=== PATIENT | female | born 1960 | race Caucasian/White ===

== ENCOUNTER 2017-09-11 10:13 | Outpatient (CLI) | payer OTHER ==
--- NOTE | 2017-09-14 11:41 | RAD ---
THREE VIEWS CERVCIAL SPINE: Date: 09-11-17 History: Neck pain Comparison: None available. FINDINGS: C1 to the cervicothoracic junction is seen on the lateral view. The vertebral body heights are within normal limits. There is narrowing of the C3-4, C5-6 and C6-7 intervertebral disc spaces. Osteophyte formation is seen posteriorly at the C5-6 and C6-7 levels. Prevertebral soft tissues are within bryanna l limits. IMPRESSION: Degenerative changes in the cervical spine. No fracture or subluxation is seen. POS: MICHAEL
== END 2017-09-11 10:14 | disposition home or self-care (01) ==
LOC: RAD-FRANK 10:13
PROVIDERS: ATTEND Nurse Practitioner Family
DX: M54.2 Cervicalgia (principal); M47.892 Other spondylosis, cervical region
CPT/HCPCS: 72040

== ENCOUNTER 2020-07-19 12:56 | Observation (INO) | payer BC ==
[~2020-07-19 12:56] MED LIST: Lidocaine 1% PF 5 ML VIAL ONE; Ondansetron PF 4 MG/2 ML Vial ONE; PROPOFOL 200 MG/20 ML VIAL ONE; Rocuronium Bromide 10 MG/ML (10ML VIAL) ONE; ePHEDrine 50 MG/ML VIAL ONE
[2020-07-19] MEDS ORDERED: Ketamine 50 MG/ML (10ML VIAL) ONE (13:07)
[2020-07-19] MEDS ORDERED: Ondansetron PF 4 MG/2 ML Vial ONE (13:07)
--- NOTE | 2020-07-19 13:39 | RAD ---
EXAM: 2 views of the left tibia/fibula HISTORY: Leg pain after falling off a ladder COMPARISON: None FINDINGS: There is a comminuted fracture of the distal fibula diaphysis. There is a comminuted fractu re of the distal tibial metaphysis. Surrounding soft tissue swelling is seen. There is normal alignment of the ankle mortise. IMPRESSION: Distal left tibia and fibula fracture
--- NOTE | 2020-07-19 13:41 | RAD ---
Foot 2 views: 07/19/2020 COMPARISON: None HISTORY: Fell off of a ladder FINDINGS: Prominent distal left tibial and fibular fractures are present, better assessed on the left ankle series. Please refer to left ankle imaging for full assessment. No fracture seen otherwise on this exam. IMPRESSION: Fractures of the distal left tibia and fibula, not well visualized on this exam.
--- NOTE | 2020-07-19 13:41 | RAD ---
EXAM: 2 views of the left ankle HISTORY: Ankle pain COMPARISON: None FINDINGS: 2 views of the left ankle shows a fracture the distal fibular diaphysis and a fracture of t he distal tibial metaphysis. Both of the fractures are comminuted. There is normal alignment of the ankle mortise. Diffuse surrounding soft tissue swelling is seen. IMPRESSION: Distal tibial and fibular fractures
[2020-07-19] MEDS ORDERED: Lorazepam 2 MG/ML VIAL ONE (13:54)
--- NOTE | 2020-07-19 14:14 | RAD ---
EXAM: Single view of the chest HISTORY: Ankle fracture. Preoperative radiograph COMPARISON: None FINDINGS: Single view of the chest shows a normal sized cardiomediastinal silhouette. There is no walt dence of consolidation, mass, or pleural effusion. Hardware is seen in the cervical spine. IMPRESSION: No evidence of acute cardiopulmonary disease
--- NOTE | 2020-07-19 14:15 | RAD ---
Exam: XR Ankle Lt 2 View HISTORY: Deformity left ankle. Post reduction. COMPARISON: 07/19/2020 at 1324 hours FINDINGS: Previously noted comminuted fractures involving the distal left tibial metaphysis as well as distal f ibular diaphysis are again seen. Overall alignment of fracture fragments is not significantly changed. Distal fracture fragment of the tibia is displaced laterally by 1.4 cm. There is mild apex m edial angulation of fracture fragments. Subcutaneous soft tissue swelling is seen about the ankle. Splint material now overlies the ankle. There is no dislocation seen. IMPRESSION: Comminuted fractures with separation and displacement of fracture fragments involving the distal left tibia and fibula.
[2020-07-19 14:20] LABS: #Basophils 0.1 thou/uL (0.0-0.2); #Eosinphils 0.1 thou/uL (0.0-0.7); #Lymphocytes 2.5 thou/uL (1.20-3.40); #Monocytes 1.2 thou/uL (0.11-0.59); #Neutrophils 10.4 thou/uL (1.40-6.50); %Basophils 0.5 % (0.0-1.0); %Eosinophils 0.8 % (0.0-10.0); %Lymphocytes 17.4 % (21.0-51.0); %Monocytes 8.3 % (0.0-10.0); %Neutrophils 73.1 % (42.0-75.0); Hemoglobin 12.3 g/dL (12.0-16.0); Mean Corpuscular HGB CONC 32.2 g/dL (32.0-36.0); Mean Corpuscular Hemoglobin 31.7 pg (27.0-31.0); Mean Corpuscular Volume 98.3 fL (78.0-98.0); Mean Platelet Volume 7.5 fL (7.4-10.4); Platelet Count 337 thou/uL (130-400); RBC Distribution Width 11.8 % (11.5-14.5); Red Blood Cell (RBC) Count 3.87 mill/uL (4.20-5.40); White Blood Cell (WBC) Count 14.2 thou/uL (4.8-10.8)
[2020-07-19 14:24] LABS: INR-International Normal Ratio 1.1; PTT 25.5 sec (22.9-36.1); Prothrombin Time 14.3 sec (12.0-14.7)
[2020-07-19 14:44] LABS: ALT (SGPT) 22 U/L (8-55); AST (SGOT) 17 U/L (5-34); Albumin 3.8 g/dL (3.5-5.0); Alkaline Phosphatase 60 U/L (40-110); Anion Gap 13 mmol/L (10-20); BUN (Urea Nitrogen) 12 mg/dL (9.8-20.1); Bilirubin, Total 0.4 mg/dL (0.2-1.2); Calc. Creatinine Clearance 0 mL/min (70-130); Calcium 8.2 mg/dL (7.8-10.44); Carbon Dioxide 22 mmol/L (22-29); Chloride 110 mmol/L (98-107); Globulin 2.7 g/dL (2.4-3.5); Glucose 101 mg/dL (70-105); Potassium 3.5 mmol/L (3.5-5.1); Protein, Total 6.5 g/dL (6.0-8.3); Sodium 141 mmol/L (136-145)
[2020-07-19 14:55] LABS: Magnesium 1.9 mg/dL (1.6-2.6)
[2020-07-19] MEDS ORDERED: Fentanyl 100 MCG/2 ML VIAL ONE ×4 (15:04→20:07)
[2020-07-19] MEDS ORDERED: Ketorolac Tromethamine 30 MG/ML VIAL ONE (15:14)
[2020-07-19] MEDS ORDERED: Boostrix 0.5 ML (Tdap) VIAL ONE (15:14)
[2020-07-19] MEDS ORDERED: Potassium Phosphate 30 MMOL, Magnesium Sulfate 2 GM in Sodium Chloride 0.9% 250 ML 250 ML IVPB SCH (15:18)
[2020-07-19] MEDS ORDERED: Dextrose 5% in Water 1,000 ML IV PRN (15:18)
[2020-07-19] MEDS ORDERED: Ondansetron PF 4 MG/2 ML Vial IVP PRN (15:18)
[2020-07-19] MEDS ORDERED: Dextrose 50% Abboject 50 ML SYRINGE SLOW IVP PRN (15:18)
[2020-07-19] MEDS ORDERED: Ondansetron ODT 4 MG TAB PO PRN (15:18)
[2020-07-19] MEDS ORDERED: Magnesium Sulfate 2 GM in Sodium Chloride 0.9% 100 ML IVPB SCH (15:18)
[2020-07-19] MEDS ORDERED: Promethazine HCl 25 MG/ML VIAL IM PRN (15:18)
[2020-07-19] MEDS ORDERED: hydrALAZINE 20 MG/ML VIAL SLOW IVP PRN (15:18)
[2020-07-19] MEDS ORDERED: traMADol HCl 50 MG TAB PO PRN (15:21)
[2020-07-19] MEDS ORDERED: Cyclobenzaprine 10 MG TAB PO PRN (15:21)
--- NOTE | 2020-07-19 15:22 | CON ---
DATE OF CONSULTATION: This is Ashok Koehler PA-C dictating a report for Roberto Arteaga MD. HISTORY OF PRESENT ILLNESS: We were asked by Trauma in the ER to see patient. The patient was up on a ladder cleaning trailer, water was all over the ground, ladder slipped as did she landing on her left lower extremity. Currently, she is a little somnolent due to pain medications. The family is at the bedside. Overall, she is answering questions well. Asked patient if she hurts anywhere else or had any other injuries, she denies this. The patient had definite deformity of the left ankle even after reduction in the ER. The patient's leg is still fairly painful, miserable. She denies any numbness or tingling. No sensory changes. PAST MEDICAL HISTORY: Positive for thyroid. She has some chronic pain from cervical injury with a multilevel 360 anterior cervical and posterior cervical diskectomy and fusion. Also has some neuropathies, muscle spasms. MEDICATIONS: 1. Thyroid. 2. Tramadol. 3. Flexeril. 4. Gabapentin. 5. Adderall. ALLERGIES: VERY SENSITIVE AND ALLERGIC TO MORPHINE. SURGERIES: She has had a 360 cervical fusion and diskectomy by Dr. Dominguez. She had an appendix and right foot surgery. SOCIAL HISTORY: . Family is at bedside. 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 She denies any alcohol, nicotine, or drug products whatsoever. FAMILY HISTORY: For this particular admission is noncontributory. REVIEW OF SYSTEMS: Denies any chest pain or shortness of breath. No chronic bowel or bladder issues. Health is overall pretty good. Her only complaint is significant left lower extremity pain. Rest of review of systems is negative. PHYSICAL EXAMINATION: GENERAL: Well-nourished, well-developed female, alert, pleasant, and in moderate distress, resting on a gurney in room 2 in the emergency room. Again, family is at bedside. HEENT: Scalp atraumatic. Face symmetric. Tongue midline. NECK: Supple. Trachea midline. EXTREMITIES: Upper extremities; equal, size, shape, symmetry. Normal bulk and tone. Movement, sensations, strengths are grossly intact. Respirations 16. No acute distress. Pelvis, no pain with rocking. Right lower extremity, normal exam. Left lower extremity, she is currently splinted in posterior stirrup splint. She is able to wiggle her toes and has good capillary refill and sensations. IMAGING STUDIES: X-ray shows a fairly significant distal tib-fib fracture. ER states that has a few puncture holes through it. LABORATORY DATA: WBC 14.2, RBCs 3.87. Coags negative. Chemistry and COVID pending. ASSESSMENT: Open left distal tib-fib fracture. PLAN: I spoke with Dr. Arteaga, would like to do this today. Trauma is evaluating the patient to deal with their medical issues. I spoke with the family and the patient, went over the surgery via distal tibial plating. We will need to watch out those two small puncture areas and I have explained this to the family. Their questions and concerns have been addressed. The patient and family understand the risks and benefits of surgery and they are amenable to go forth with surgery. We will get her added on to the operating room schedule. She has currently been n.p.o. since yesterday, get her consented, get her on some IV antibiotics, at ER was given her two doses and if family has any other questions or concerns, where they find that she is on further medications and what we are able to acquire, we will go over them at that time. Job ID: [id number]
--- NOTE | 2020-07-19 16:35 | HP ---
CONSULTS: Orthopedic Surgery, Dr. Arteaga. PRIMARY CARE PHYSICIAN: Dr. Dwoell. CHIEF COMPLAINT: Fall from step ladder, left ankle pain. 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 The patient states that she landed wrong on her left ankle. Reported immediate pain. The patient denies hitting her head or losing consciousness. The patient denies any other injuries. The patient had obvious deformity and pain to her left ankle. The patient was evaluated in the emergency room and found to have a dislocation of her left ankle. The patient was given ketamine for sedation, and her ankle was reduced. Post-reduction x-rays showed a comminuted open distal tibia-fibula fracture. The patient was given a tetanus injection, Ancef 2 g, and gentamicin in the emergency room. PAST MEDICAL HISTORY: Hypothyroidism, chronic neck pain. PAST SURGICAL HISTORY: Appendectomy, , breast augmentation, neck surgery. SOCIAL HISTORY: The patient lives at home with her spouse, stopped smoking five years ago, smoked for approximately 20 years, denies illicit drug use, reports occasional social alcohol use. FAMILY HISTORY: Denies. ALLERGIES: MORPHINE. CURRENT MEDICATIONS: 1. Levothyroxine 75 mcg daily. 2. Gabapentin. 3. Tramadol 50 mg b.i.d.. REVIEW OF SYSTEMS: A 10-point review of systems is negative unless otherwise indicated in the above HPI. OBJECTIVE: VITAL SIGNS: Blood pressure 130/90, pulse 74, respirations 15, temperature 97.7, SpO2 100% on 2 L nasal cannula. GENERAL: Well-appearing middle-age female, awake but somewhat drowsy after conscious sedation. HEENT: Head is atraumatic and normocephalic. Pupils are equal bilateral, mucous membranes are moist. NECK: No cervical spine tenderness, normal range of motion of neck. No JVD. Trachea is midline. RESPIRATORY: Good inspiratory and expiratory effort, no wheezing, rales, or rhonchi. CARDIOVASCULAR: Regular rate regular rhythm, no murmurs, no pedal edema. ABDOMEN: Soft, nontender, nondistended. EXTREMITIES: Pelvis is stable, moves all extremities, left lower extremity splinted, neurovascularly intact in all extremities. NEUROLOGIC: No focal deficits. SKIN: Warm, dry, normal color. LABORATORY DATA: WBC 14.2, RBC 3.87, hemoglobin 12.3, hematocrit 38.1, platelets 337. PT 14.3, INR 1.1, APTT 25.5. Sodium 141, potassium 3.5, chloride 110, creatinine 0.77, BUN 12, estimated GFR 77, glucose 101, calcium 8.2, phosphorus 2.0, magnesium 1.9. AST 17, ALT 22, alkaline phos 60, albumin 3.8. DIAGNOSTICS: 12-lead EKG, normal sinus rhythm, no ectopy, no ST or T-wave abnormalities. Left foot x-ray. Impression: Fractures of the distal left tibia and fibula. Left tib-fib x-ray: Distal left tibia and fibula fracture. Left ankle x-ray. Impression: After reduction comminuted fractures with separation and displacement of fracture fragments involving the distal left tibia and fibula. Chest x-ray, impression: No evidence of acute cardiopulmonary disease. ASSESSMENT: 1. Status post fall from ladder approximately 2 to 4 feet without loss of consciousness. 2. Left distal tibia and fibular fracture. 3. Hypophosphatemia. 4. Acute traumatic pain secondary to above injury. 5. History of hypothyroidism and chronic neck pain. PLAN: N.p.o. with maintenance IV fluids, lactated Ringer's 120 an hour. Pain control. Orthopedic Surgery plans to take the patient to the OR this evening for repair. PT and OT to evaluate and treat postop. Regular diet as tolerated postop. The plan was discussed with the patient and family who agree. The plan was discussed with the attending. Job ID: [id number]
[2020-07-19 16:38] LABS: SARS-CoV-2 NAA Rapid Test DETECTED (NotDetected)
[2020-07-19] MEDS ORDERED: Ondansetron HCl/PF 4 MG/2 ML Vial IVP PRN (17:36)
[2020-07-19] MEDS ORDERED: Midazolam HCl 2 mg/2 ml Vial ONE (17:50)
[2020-07-19] MEDS ORDERED: Gentamicin 300 MG in Sodium Chloride 0.9% 100 ML IVPB SCH (19:00)
[2020-07-19] MEDS ORDERED: SUGAMMADEX SODIUM 200 MG/2 ML VIAL ONE (19:40)
--- NOTE | 2020-07-19 20:30 | RAD ---
TWO VIEWS OF THE LEFT ANKLE: 07/19/20 COMPARISON: 07/19/20. HISTORY: Distal tibia and fibula fractures. FINDINGS/IMPRESSION: Two limited intraoperative fluoroscopic views of the left ankle were submitted for interpretation. Th e patient' is status post ORIF of the tibial fracture with a plate and screw. An injected fibula frac ture is not fixated with hardware. Both of the fractures are mildly comminuted. POS: EAA
[2020-07-19] MEDS: Acetaminophen 500 MG TAB PO SCH ×2 (21:59→23:04)
[2020-07-19] MEDS: traMADol HCl 50 MG TAB PO SCH ×2 (21:59→22:10)
[2020-07-19] MEDS: Ketorolac Tromethamine 30 MG/ML VIAL IVP SCH ×2 (22:08→23:03)
[2020-07-19] MEDS: Gabapentin 300 MG CAP PO SCH (22:09)
[2020-07-19] MEDS: Senokot S 8.6-50 MG TAB PO SCH (22:09)
[2020-07-19] MEDS: Famotidine 20 MG TAB PO SCH (22:09)
[2020-07-19] MEDS: Lactated Ringer's 1,000 ML IV SCH ×3 (22:11→23:50)
[2020-07-19 22:12] VITALS: BMI 32.3
--- NOTE | 2020-07-20 02:01 | OP ---
DATE OF PROCEDURE: 07/19/2020 PROCEDURE PERFORMED: Open reduction and internal fixation of left distal tibial plafond fracture. PREOPERATIVE DIAGNOSIS: Displaced left distal tibial plafond fracture and fibular fracture. POSTOPERATIVE DIAGNOSIS: Displaced left distal tibial plafond fracture and fibular fracture. COMPLICATIONS: None. ESTIMATED BLOOD LOSS: 100 mL. LIBRARY SUPERVISOR: Ashok Koehler PA-C IMPLANT: Synthes medial tibial plate with multiple locking and nonlocking screws. INDICATIONS FOR PROCEDURE: Ms. Barrientos is a 60-year-old female who has fallen from a ladder and fractured her distal tibia and fibula. She has been indicated for open reduction and internal fixation to restore anatomic alignment and promote healing and prevent complications of her displaced fracture. Risks have been reviewed in detail. She has elected to proceed with the operation. DESCRIPTION OF PROCEDURE: Ms. Barrientos was identified in the preoperative holding area. Her correct extremity was marked. She was carried to the operating room. She was positioned supine. General anesthesia was induced. A multidisciplinary time-out was performed. The left lower extremity was prepped and draped in a sterile fashion. We began the procedure with a small incision over the medial malleolus. We dissected down through the subcutaneous tissues down to the bony level. There was a significantly displaced fracture with hematoma. The bony edges were cleared. We copiously irrigated and evacuated hematoma at this point. We cleared soft tissue from the fracture site. At this point, we pulled traction on the leg and reduced the fracture. We then slid a Synthes 6-hole medial distal tibial plate from distal to proximal. We took x-ray images confirming plate placement and that the fracture was well reduced. At this point, we placed multiple screws proximally and distally to the fracture site. We had good fixation. There was no complication. We felt some remaining screw holes until we had adequate fixation. At this point again, we thoroughly irrigated with copious lavage. We then closed our small wounds with 2-0 Vicryl suture followed by 3-0 nylon suture. A sterile dressing was applied and a splint was placed at this point. The patient was taken to the recovery room in good condition. The assistant executive housekeeper surgeon was responsible for positioning the patient, preparing the injured extremity, applying the tourniquet, and assisting in preparation for surgery. The assistant executive housekeeper was instrumental in reducing the injured limb by applying traction and reduction maneuvers as well as holding retractors and reduction tools. The assistant executive housekeeper also was instrumental in assisting in exposure throughout the operation using appropriate retractors. The assistant executive housekeeper participated in closure of the operative site as well as dressing application and splint application. Job ID: [id number]
[2020-07-20] MEDS: CEFAZOLIN 2 GM in Premix Bag 1 BAG IVPB SCH ×2 (02:42→10:53)
[2020-07-20] MEDS: Acetaminophen 500 MG TAB PO SCH ×2 (04:23→08:46)
[2020-07-20] MEDS: traMADol HCl 50 MG TAB PO SCH ×2 (04:24→10:53)
[2020-07-20] MEDS: Ketorolac Tromethamine 30 MG/ML VIAL IVP SCH ×2 (05:39→12:55)
[2020-07-20 07:26] LABS: Hemoglobin 11.4 g/dL (12.0-16.0); Mean Corpuscular HGB CONC 32.6 g/dL (32.0-36.0); Mean Corpuscular Hemoglobin 32.1 pg (27.0-31.0); Mean Corpuscular Volume 98.7 fL (78.0-98.0); Mean Platelet Volume 7.4 fL (7.4-10.4); Platelet Count 284 thou/uL (130-400); RBC Distribution Width 11.8 % (11.5-14.5); Red Blood Cell (RBC) Count 3.55 mill/uL (4.20-5.40); White Blood Cell (WBC) Count 8.3 thou/uL (4.8-10.8)
[2020-07-20 07:44] LABS: Anion Gap 10 mmol/L (10-20); BUN (Urea Nitrogen) 9 mg/dL (9.8-20.1); Calc. Creatinine Clearance 119 mL/min (70-130); Calcium 8.1 mg/dL (7.8-10.44); Carbon Dioxide 27 mmol/L (22-29); Chloride 108 mmol/L (98-107); Glucose 96 mg/dL (70-105); Magnesium 2.4 mg/dL (1.6-2.6); Potassium 3.9 mmol/L (3.5-5.1); Sodium 141 mmol/L (136-145)
[2020-07-20] MEDS: Senokot S 8.6-50 MG TAB PO SCH (08:45)
[2020-07-20] MEDS: Famotidine 20 MG TAB PO SCH (08:45)
[2020-07-20] MEDS: Gabapentin 300 MG CAP PO SCH ×2 (08:48→15:19)
[2020-07-20] MEDS ORDERED: Enoxaparin Sodium 40 MG/0.4 ML SYRINGE SC SCH (09:00)
[2020-07-20] MEDS ORDERED: Polyethylene Glycol 3350 17 GM Packet PO SCH (09:00)
--- NOTE | 2020-07-20 13:06 | PRG ---
DATE OF SERVICE: 07/20/2020 SUBJECTIVE: Gabriela is a 60-year-old female, postop day 1 from a left distal tibia open reduction and internal fixation, irrigation and debridement. She is doing relatively well, but at the time of my visit, she has a little nausea and requested some Zofran. OBJECTIVE: VITAL SIGNS: Temperature 97.6, pulse 62, blood pressure is 97/54, respiratory rate is 20, unlabored. O2 saturations 97% on room air. GENERAL: She is alert, responsive, appropriate and converses easily with examiner, has good humor about her this morning. EXTREMITIES: Visual inspection of the left lower extremity demonstrates her to have a splint to be intact. She is neurovascularly intact with good digital excursion and sensation in all the digits. No strikethrough is noted. IMPRESSION: A 60-year-old female, on postop day 1 from irrigation and debridement, open reduction and internal fixation of the left distal tibial metaphyseal fracture. PLAN: Continue current care. Initiate physical therapy. Disposition per Trauma Team. Job ID: [id number]
[2020-07-20] MEDS ORDERED: Acetaminophen 500 MG TAB PO SCH ×2 (14:36→17:00)
[2020-07-20] MEDS: Lactated Ringer's 1,000 ML IV SCH (15:25)
[2020-07-20] MEDS ORDERED: traMADol HCl 50 MG TAB PO SCH (17:00)
[2020-07-20 20:05] VITALS: BP 108/71; TEMP 98.3
[2020-07-20] MEDS ORDERED: Ibuprofen 600 MG TAB PO SCH (22:00)
--- NOTE | 2020-07-23 13:19 | DIS ---
DATE OF ADMISSION: 07/19/2020 DATE OF DISCHARGE: 07/20/2020 DISCHARGE ATTENDING: Dr. Sahu. CONSULTS: Orthopedic Surgery, Dr. Arteaga. PRIMARY CARE PHYSICIAN: Dr. Dowell. PROCEDURES: On 07/19/2020, open reduction and internal fixation of left distal tibia plafond fracture. PRIMARY DIAGNOSES: 1. Status post fall from ladder approximately 2 to 4 feet without loss of consciousness. 2. Left distal tibia-fibular fracture. 3. Hypophosphatemia. 4. Acute traumatic pain secondary to above injuries. 5. COVID-19 positive. SECONDARY DIAGNOSES: 1. Hypothyroidism. 2. Chronic neck pain. DISCHARGE MEDICATIONS: 1. Flexeril 10 mg p.o. 3 times a day as needed for muscle spasms, #30, no refills. 2. Tylenol 1000 mg p.o. q.6 hours. 3. Lovenox 40 mg subcu daily for 2 weeks. 4. Gabapentin 300 mg p.o. 3 times a day, #60, no refills. 5. Ibuprofen 600 mg p.o. q.8 hours p.r.n. pain. 6. Synthroid 75 mcg p.o. daily. 7. MiraLAX as needed for constipation. 8. Tramadol 50 mg p.o. q.6 hours 1 to 2 tablets p.r.n. pain, #80, no refills. No discontinued medications. 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 The patient states she landed wrong onto her ankle and reported immediate pain. The patient denied hitting her head or losing consciousness. The patient denied any other injuries. The patient had obvious deformity and pain to her left ankle. The patient was evaluated in the emergency room and found to have a dislocation and fracture. The patient was given ketamine for sedation and her ankle was reduced. After reduction, it was noted to be an open fracture. The patient was given a tetanus injection and Ancef, also including gentamicin IV. The patient's pain was well controlled pre and postop. The patient was COVID swabbed and was positive. The patient was COVID positive without any symptoms. The patient was able to work with Physical Therapy. The patient was able to ambulate safely. On the day of discharge, her exam was unremarkable. Her vital signs were stable and she was deemed safe for discharge back home. DISPOSITION: Stable. DISCHARGE INSTRUCTIONS: 1. Location: Home. 2. Diet: Regular diet as tolerated. 3. Activity: Nonweightbearing left lower extremity, the patient is to use crutches. 4. The patient is to quarantine for 10 days. 5. Followup: Follow up with Orthopedic Surgery as directed. 6. No need to follow up with Trauma Services, please call for any questions. The [place] prescription monitoring program was accessed and appropriate. Greater than 50% of the 30 minutes was spent on discharge instructions and medications. Job ID: [id number] [facility]
== END 2020-07-20 19:15 | disposition home or self-care (01) ==
LOC: ERS 12:56 → SDC/OP 15:53 → T4-A 16:00
PROVIDERS: ADMIT Surgery; ATTEND Surgery
PROC: 0QSH04Z Reposition Left Tibia with Internal Fixation Device, Open Approach (ICD-10-PCS; principal; 2020-07-19)
DX: S82.872A Displaced pilon fracture of left tibia, initial encounter for closed fracture (principal); S89.302A Unspecified physeal fracture of lower end of left fibula, initial encounter for closed fracture; U07.1 COVID-19; G89.11 Acute pain due to trauma; E83.39 Other disorders of phosphorus metabolism; E03.9 Hypothyroidism, unspecified; G89.29 Other chronic pain; M54.2 Cervicalgia; Z87.891 Personal history of nicotine dependence; Z79.899 Other long term (current) drug therapy; Z88.5 Allergy status to narcotic agent; W11.XXXA Fall on and from ladder, initial encounter
CPT/HCPCS: 0240U; 27818; 36415; 71045; 76000; 80048; 80053; 83735; 84100; 85025; 85027; 85610; 85730; 86850; 86900; 86901; 90471; 90715; 93005; 94760; 96365; 96375; 99152; 99153; C1713; G0378; G0390; J0690; J1580; J1650; J1885; J2060; J2250; J2405; J2704; J3010; J3475; J3490; J7050; Q0162

== ENCOUNTER 2020-08-09 13:04 | Emergency (ER) | payer BC ==
[2020-08-09 15:42] LABS: ALT (SGPT) 17 U/L (8-55); AST (SGOT) 20 U/L (5-34); Albumin 4.3 g/dL (3.5-5.0); Alkaline Phosphatase 85 U/L (40-110); Anion Gap 14 mmol/L (10-20); BUN (Urea Nitrogen) 16 mg/dL (9.8-20.1); Bilirubin, Total 0.6 mg/dL (0.2-1.2); Calc. Creatinine Clearance 0 mL/min (70-130); Calcium 9.9 mg/dL (7.8-10.44); Carbon Dioxide 27 mmol/L (22-29); Chloride 104 mmol/L (98-107); Globulin 3.1 g/dL (2.4-3.5); Glucose 88 mg/dL (70-105); Potassium 4.5 mmol/L (3.5-5.1); Protein, Total 7.4 g/dL (6.0-8.3); Sodium 140 mmol/L (136-145)
[2020-08-09] MEDS ORDERED: traMADol HCl 50 MG TAB ONE (15:58)
== END 2020-08-09 17:03 | disposition home or self-care (01) ==
LOC: ERS 13:04
DX: L76.82 Other postprocedural complications of skin and subcutaneous tissue (principal); L53.9 Erythematous condition, unspecified; Z87.891 Personal history of nicotine dependence
CPT/HCPCS: 36415; 80053; 85652; 86140

== ENCOUNTER 2021-05-06 12:57 | Outpatient (CLI) | payer BC ==
[2021-05-07 08:59] LABS: SARS-CoV-2 PCR by NAA Not Detected (NotDetected)
== END 2021-05-06 12:58 | disposition home or self-care (01) ==
LOC: LABBT 12:57
PROVIDERS: ATTEND Orthopaedic Surgery
DX: Z01.812 Encounter for preprocedural laboratory examination (principal); Z20.822 Contact with and (suspected) exposure to COVID-19
CPT/HCPCS: U0003; U0005

== ENCOUNTER 2021-05-10 05:48 | Day surgery (SDC) | payer BC ==
[2021-05-08 14:14] VITALS: BMI 28.2
[2021-05-10] MEDS ORDERED: ceFAZolin 2 GM/DEX 5% 100 ML BAG ONE (06:27)
[2021-05-10] MEDS ORDERED: Fentanyl 100 MCG/2 ML VIAL ONE ×4 (06:52→09:22)
[2021-05-10] MEDS ORDERED: Midazolam HCl 2 mg/2 ml Vial ONE (06:54)
[2021-05-10] MEDS ORDERED: PROPOFOL 200 MG/20 ML VIAL ONE (07:39)
[2021-05-10] MEDS ORDERED: Lidocaine 1% PF 5 ML VIAL ONE (07:39)
[2021-05-10] MEDS ORDERED: Ondansetron PF 4 MG/2 ML Vial ONE (07:39)
[2021-05-10] MEDS ORDERED: Dexamethasone 20 MG/5 ML VIAL ONE (07:39)
[2021-05-10] MEDS ORDERED: HYDROcodone/Acetaminophen 5/325 mg Tablet ONE (10:25)
== END 2021-05-10 10:54 | disposition home or self-care (01) ==
LOC: SDC 05:48
PROVIDERS: ATTEND Orthopaedic Surgery
PROC: 0QPH04Z Removal of Internal Fixation Device from Left Tibia, Open Approach (ICD-10-PCS; principal; 2021-05-10)
DX: T84.84XA Pain due to internal orthopedic prosthetic devices, implants and grafts, initial encounter (principal); E07.9 Disorder of thyroid, unspecified; G89.29 Other chronic pain; Z79.899 Other long term (current) drug therapy; Z88.5 Allergy status to narcotic agent; Z91.048 Other nonmedicinal substance allergy status; Z98.1 Arthrodesis status
CPT/HCPCS: 76000; J1100; J2250; J2405; J2704; J3010

== ENCOUNTER 2022-09-11 15:35 | Emergency (ER) | payer BC, OTHER ==
[2022-09-11] MEDS ORDERED: Acetaminophen 500 MG TAB ONE (17:59)
[2022-09-11] MEDS ORDERED: Ketorolac Tromethamine 30 MG/ML VIAL ONE (17:59)
== END 2022-09-11 19:41 | disposition home or self-care (01) ==
LOC: ERS 15:35
DX: M54.2 Cervicalgia (principal); M25.511 Pain in right shoulder; Z87.891 Personal history of nicotine dependence
CPT/HCPCS: 72040; 72072; 96372; J1885

== ENCOUNTER 2023-07-20 11:37 | Outpatient (CLI) | payer OTHER ==
[2023-07-20] MEDS ORDERED: E-Z-HD 98% W/W 340GM BOT (x-ray ONLY) ONE (12:02)
[2023-07-20] MEDS ORDERED: Barium Sulfate 96% 176 GM BOT (xray ONLY) ONE (12:02)
== END 2023-07-20 11:38 | disposition home or self-care (01) ==
LOC: RAD 11:37
PROVIDERS: ATTEND Internal Medicine
DX: R13.10 Dysphagia, unspecified (principal)
CPT/HCPCS: 74220

== ENCOUNTER 2024-02-05 05:33 | Inpatient (IN) | payer OTHER ==
[2024-02-05] MEDS ORDERED: CEFAZOLIN 2 GM VIAL ONE (06:12)
[2024-02-05] MEDS ORDERED: Famotidine/PF 20 mg/2ml Vial ONE (06:12)
[2024-02-05] MEDS ORDERED: Sodium Chloride 0.9% 100 ML ONE (06:12)
[2024-02-05] MEDS ORDERED: Lidocaine 1% MPF 2 ML VIAL ONE (06:12)
[2024-02-05] MEDS ORDERED: Propofol 1,000 MG/100 ML VIAL IV ONE ×2 (06:32→06:51)
[2024-02-05] MEDS ORDERED: Lidocaine 1% PF 5 ML VIAL ONE (06:40)
[2024-02-05] MEDS ORDERED: fentaNYL PF 100 MCG/2 ML SYRINGE ONE ×2 (06:40→13:17)
[2024-02-05] MEDS ORDERED: Rocuronium Bromide 10 MG/ML (10ML VIAL) ONE (06:40)
[2024-02-05] MEDS ORDERED: Phenylephrine 40 MG/NS 250 ML 250 ML ONE (06:43)
[2024-02-05] MEDS ORDERED: Ondansetron PF 4 MG/2 ML Vial ONE (07:16)
[2024-02-05] MEDS ORDERED: HYDROmorphone 0.5 MG/0.5 ML SYRINGE ONE ×2 (07:17→07:18)
[2024-02-05] MEDS ORDERED: Dexamethasone 20 MG/5 ML VIAL ONE (07:17)
[2024-02-05] MEDS ORDERED: PHENYLEPHRINE-NS 100 MCG/ML 10 ML SYRINGE ONE ×2 (07:27→12:26)
[2024-02-05] MEDS ORDERED: NEOSTIGMINE 3 MG/3 ML SYRINGE ONE (12:03)
[2024-02-05] MEDS ORDERED: Glycopyrrolate 0.2 MG/ML 5 ML SYRINGE ONE (12:03)
[2024-02-05] MEDS ORDERED: Acetaminophen 325 MG TAB PO PRN (12:27)
[2024-02-05] MEDS ORDERED: ANTIBIOTICS IVPB PRN (12:52)
[2024-02-05] MEDS ORDERED: CEFAZOLIN 2 GM in Sodium Chloride 0.9% 100 ML IVPB SCH (14:00)
[2024-02-05] MEDS ORDERED: fentaNYL 50 mcg/mL 1 mL Vial ONE (14:03)
[2024-02-05 14:49] VITALS: BMI 32.4
[2024-02-05] MEDS: traMADol HCl 50 MG TAB PO PRN (16:04)
[2024-02-05] MEDS: CEFAZOLIN 2 GM in Sodium Chloride 0.9% 100 ML IVPB SCH (16:04)
[2024-02-05] MEDS: TETANUS, DIPHTHERIA TOX,ADULT (TDVAX) 0.5 ML VIAL IM ONE (16:05)
[2024-02-05] MEDS: tiZANidine HCl 4 MG TAB PO SCH (20:25)
[2024-02-05] MEDS: Aspirin 81 mg Enteric Coated Tablet PO SCH (20:25)
[2024-02-05] MEDS ORDERED: Dextroamphetamine/Amphetamine [Adderall 20 Mg Tablet] PO SCH (21:00)
[2024-02-06] MEDS: Levothyroxine Sodium 75 MCG TAB PO SCH (05:51)
[2024-02-06] MEDS: Cholecalciferol 1,000 UNITS (25 MCG) TAB PO SCH (08:00)
[2024-02-06 08:06] VITALS: BP 99/63; TEMP 98
[2024-02-06] MEDS: HYDROmorphone 2 MG TAB PO PRN (08:39)
== END 2024-02-06 13:05 | disposition home or self-care (01) | DRG 455 ==
LOC: SURG A 05:33 → SURG B 14:17
PROVIDERS: ADMIT Orthopaedic Surgery; ATTEND Orthopaedic Surgery
PROC: 0RG40A0 Fusion of Cervicothoracic Vertebral Joint with Interbody Fusion Device, Anterior Approach, Anterior Column, Open Approach (ICD-10-PCS; principal; 2024-02-05)
PROC: 0RG4071 Fusion of Cervicothoracic Vertebral Joint with Autologous Tissue Substitute, Posterior Approach, Posterior Column, Open Approach (ICD-10-PCS; 2024-02-05)
PROC: 01N10ZZ Release Cervical Nerve, Open Approach (ICD-10-PCS; 2024-02-05)
PROC: 01N80ZZ Release Thoracic Nerve, Open Approach (ICD-10-PCS; 2024-02-05)
PROC: 0RB50ZZ Excision of Cervicothoracic Vertebral Disc, Open Approach (ICD-10-PCS; 2024-02-05)
DX: M48.03 Spinal stenosis, cervicothoracic region (principal); M54.13 Radiculopathy, cervicothoracic region
CPT/HCPCS: 80048; 85027; 85610; 85730; 86850; 86900; 86901; 93005; 93010; C1713; C1889; J1100; J1170; J2405; J2704; J3010; J3490